=== PATIENT | male | born 1930 | race Caucasian/White ===

== ENCOUNTER 2018-05-15 01:53 | Inpatient (IN) | payer OTHER ==
[~2018-05-15] VITALS: Ht 167.6 cm; Wt 70.8 kg
[2018-05-15 01:54] VITALS: Ht 167.6 cm; Wt 70.8 kg
[2018-05-15 02:41] LABS: BASOPHIL % 0.5 % (0-2); PLATELET COUNT 253 x10^3mcL (130-400); RED CELL DISTRIBUTION WIDTH 13.6 % (11.5-14.5)
[2018-05-15 02:43] LABS: CALCIUM 8.5 mg/dL (8.5-10.1); CHLORIDE SERUM 106 mmol/L (98-107); GLUCOSE SERUM 180 mg/dL (74-106); POTASSIUM SERUM 3.6 mmol/L (3.5-5.1); SODIUM SERUM 141 mmol/L (136-145)
[2018-05-15 02:48] LABS: ALBUMIN 3.7 g/dL (3.4-5.0); ALKALINE PHOSPHATASE 69 U/L (46-116); ALT/SGPT 26 U/L (16-63); AST/SGOT 22 U/L (15-37); BILIRUBIN TOTAL 0.72 mg/dL (0.20-1.00); TOTAL PROTEIN, SERUM 7.4 g/dL (6.4-8.2)
[2018-05-15 02:49] LABS: CREATININE SERUM 1.1 mg/dL (0.7-1.3)
[2018-05-15 03:08] LABS: CK-MB 7.1 ng/mL (0-3.6)
[2018-05-15] MEDS ORDERED: LOVASTATIN40 MG PO (03:31)
[2018-05-15] MEDS ORDERED: NAPROSYN500 MG PO (03:32)
[2018-05-15] MEDS ORDERED: OMEPRAZOLE40 M1 PO (03:32)
[2018-05-15] MEDS ORDERED: AMOXICILLIN500 MG PO (03:33)
[2018-05-15 05:00] VITALS: BP 112/59
[2018-05-15 05:22] VITALS: BP 137/82
[2018-05-15 06:05] LABS: T3 TOTAL 1.04 ng/mL
[2018-05-15 06:08] LABS: MAGNESIUM 1.9 mg/dL (1.8-2.4); PHOSPHOROUS 2.4 mg/dL (2.5-4.9)
[2018-05-15 06:09] LABS: FREE T4 1.08 ng/dL (0.76-1.46); FREE THYROXINE INDEX 3.4 ug/dL (1.4-4.5); T4(THYROXINE) 8.9 ug/dL (4.7-13.3)
[2018-05-15 06:17] LABS: UA SPECIFIC GRAVITY >=1.030 (1.005-1.035); microscopic required? YES; urine erythrocyte NEGATIVE (NEGATIVE)
[2018-05-15 06:41] LABS: AMPHETAMINE QUAL UR NONE DETECTED (See below)
[2018-05-15 09:23] VITALS: BP 122/76
[2018-05-15 13:34] VITALS: BP 105/64
[2018-05-15 17:39] VITALS: BP 108/65
[2018-05-15 20:18] VITALS: BP 109/67
[2018-05-16 05:59] VITALS: BP 148/87
[2018-05-16 06:07] LABS: PLATELET COUNT 230 x10^3mcL (130-400)
[2018-05-16 06:23] LABS: CARBON DIOXIDE 23.4 mmol/L (21-32); CHLORIDE SERUM 106 mmol/L (98-107); CREATININE SERUM 1.2 mg/dL (0.7-1.3); GLUCOSE SERUM 147 mg/dL (74-106); PHOSPHOROUS 4.7 mg/dL (2.5-4.9); POTASSIUM SERUM 3.9 mmol/L (3.5-5.1); SODIUM SERUM 141 mmol/L (136-145)
[2018-05-16 06:30] LABS: BASOPHIL % 0 % (0-2); RED CELL DISTRIBUTION WIDTH 14.8 % (11.5-14.5)
[2018-05-16 09:40] VITALS: BP 115/64
[2018-05-16 12:33] VITALS: BP 116/75
[2018-05-16 21:01] VITALS: BP 113/68
[2018-05-17] VITALS (7 sets, daily range): BP systolic 103–155; BP diastolic 68–101
[2018-05-17 06:35] LABS: CALCIUM 8.3 mg/dL (8.5-10.1); CARBON DIOXIDE 25.9 mmol/L (21-32); CHLORIDE SERUM 107 mmol/L (98-107); CREATININE SERUM 1.1 mg/dL (0.7-1.3); GLUCOSE SERUM 138 mg/dL (74-106); MAGNESIUM 2.1 mg/dL (1.8-2.4); PHOSPHOROUS 4.4 mg/dL (2.5-4.9); POTASSIUM SERUM 3.7 mmol/L (3.5-5.1); SODIUM SERUM 143 mmol/L (136-145)
[2018-05-17 07:10] LABS: PLATELET COUNT 225 x10^3mcL (130-400); RED CELL DISTRIBUTION WIDTH 14.5 % (11.5-14.5)
[2018-05-17 07:11] LABS: BASOPHIL % 0 % (0-2)
[2018-05-18 05:59] VITALS: BP 115/72
[2018-05-18 07:27] LABS: PLATELET COUNT 221 x10^3mcL (130-400)
[2018-05-18 07:32] LABS: BASOPHIL % 0 % (0-2); RED CELL DISTRIBUTION WIDTH 14.6 % (11.5-14.5)
[2018-05-18 07:41] LABS: CALCIUM 7.8 mg/dL (8.5-10.1); CARBON DIOXIDE 30.9 mmol/L (21-32); CHLORIDE SERUM 105 mmol/L (98-107); GLUCOSE SERUM 129 mg/dL (74-106); MAGNESIUM 2.2 mg/dL (1.8-2.4); PHOSPHOROUS 4.3 mg/dL (2.5-4.9); POTASSIUM SERUM 4.1 mmol/L (3.5-5.1); SODIUM SERUM 139 mmol/L (136-145)
[2018-05-18 08:58] VITALS: BP 120/71
[2018-05-18] MEDS ORDERED: ZES5 PO (12:16)
[2018-05-18] MEDS ORDERED: ECO81 PO (12:16)
[2018-05-18] MEDS ORDERED: COR6 PO (12:16)
[2018-05-18] MEDS ORDERED: LAC PO (12:18)
[2018-05-18] MEDS ORDERED: LEVOFLOXACIN500 M1 PO (12:18)
[2018-05-18] MEDS ORDERED: LASIX20 MG PO (12:19)
[2018-05-18] MEDS ORDERED: CLEOCIN HCL300 MG PO (12:19)
[2018-05-18 12:34] VITALS: BP 120/71
== END 2018-05-18 14:07 | disposition home health service (06) | DRG 871 ==
LOC: ED 01:53 → DU 04:30
PROVIDERS: Emergency Medicine; Family Medicine
DX: A41.9 Sepsis, unspecified organism (principal); J69.0 Pneumonitis due to inhalation of food and vomit; I21.4 Non-ST elevation (NSTEMI) myocardial infarction; J96.01 Acute respiratory failure with hypoxia; N17.0 Acute kidney failure with tubular necrosis; G93.41 Metabolic encephalopathy; E87.2 Acidosis; E87.4 Mixed disorder of acid-base balance; R65.20 Severe sepsis without septic shock; E78.00 Pure hypercholesterolemia, unspecified; E78.5 Hyperlipidemia, unspecified; K21.9 Gastro-esophageal reflux disease without esophagitis; F43.0 Acute stress reaction; E83.39 Other disorders of phosphorus metabolism; I10 Essential (primary) hypertension; D72.829 Elevated white blood cell count, unspecified; I35.0 Nonrheumatic aortic (valve) stenosis; I34.0 Nonrheumatic mitral (valve) insufficiency; I25.10 Atherosclerotic heart disease of native coronary artery without angina pectoris; Z68.26 Body mass index [BMI] 26.0-26.9, adult
CPT/HCPCS: 83880; 84439; 97110-GP; 97116-GP; 97530-GP; J1200; J1630; J1940; J1956; J2060; J2920; J2930; J3486; J3490; J7620; Q0092

== ENCOUNTER 2018-06-11 23:55 | Inpatient (IN) | payer OTHER ==
[~2018-06-11] VITALS: Ht 167.6 cm; Wt 80.9 kg
[~2018-06-11 23:55] MED LIST: AMOXICILLIN500 MG PO; CLEOCIN HCL300 MG PO; COR6 PO; ECO81 PO; LAC PO; LASIX20 MG PO; LEVOFLOXACIN500 M1 PO; LOVASTATIN40 MG PO; NAPROSYN500 MG PO; OMEPRAZOLE40 M1 PO; ZES5 PO
[2018-06-12] VITALS (7 sets, daily range): BP systolic 92–115; BP diastolic 58–86
[2018-06-12 00:54] LABS: BASOPHIL % 0.3 % (0-2); PLATELET COUNT 250 x10^3mcL (130-400); RED CELL DISTRIBUTION WIDTH 14.1 % (11.5-14.5)
[2018-06-12 00:59] LABS: CALCIUM 7.9 mg/dL (8.5-10.1); CARBON DIOXIDE 21.5 mmol/L (21-32); CHLORIDE SERUM 102 mmol/L (98-107); CREATININE SERUM 1.3 mg/dL (0.7-1.3); GLUCOSE SERUM 161 mg/dL (74-106); SODIUM SERUM 135 mmol/L (136-145)
[2018-06-12 01:03] LABS: ALKALINE PHOSPHATASE 96 U/L (46-116); ALT/SGPT 41 U/L (16-63); AST/SGOT 29 U/L (15-37); BILIRUBIN TOTAL 0.5 mg/dL (0.20-1.00); MAGNESIUM 1.8 mg/dL (1.8-2.4); PHOSPHOROUS 4.2 mg/dL (2.5-4.9); TOTAL PROTEIN, SERUM 6.6 g/dL (6.4-8.2)
[2018-06-12 01:05] LABS: ALBUMIN 3.2 g/dL (3.4-5.0)
[2018-06-12] MEDS ORDERED: TERAZOSIN HCL2 MG PO (01:52)
[2018-06-12 04:05] LABS: CHOLESTEROL/HDL RATIO 3.1
[2018-06-12 04:40] LABS: microscopic required? NO
[2018-06-12 04:54] LABS: UA SPECIFIC GRAVITY 1.015 (1.005-1.035); urine erythrocyte NEGATIVE (NEGATIVE)
[2018-06-12 05:02] LABS: AMPHETAMINE QUAL UR NONE DETECTED (See below)
[2018-06-12 06:43] LABS: BASOPHIL % 0.4 % (0-2); PLATELET COUNT 234 x10^3mcL (130-400)
[2018-06-12 06:53] LABS: FREE T4 1.19 ng/dL (0.76-1.46); FREE THYROXINE INDEX 2.7 ug/dL (1.4-4.5)
[2018-06-12 06:56] LABS: CARBON DIOXIDE 25.6 mmol/L (21-32); CHLORIDE SERUM 101 mmol/L (98-107); CREATININE SERUM 1.4 mg/dL (0.7-1.3); GLUCOSE SERUM 131 mg/dL (74-106); POTASSIUM SERUM 4.3 mmol/L (3.5-5.1); SODIUM SERUM 137 mmol/L (136-145)
[2018-06-12 08:21] LABS: T3 TOTAL 1.04 ng/mL
[2018-06-13 08:40] VITALS: BP 87/61
[2018-06-13 08:45] VITALS: BP 95/65
[2018-06-13 10:24] LABS: BASOPHIL % 0.4 % (0-2); PLATELET COUNT 234 x10^3mcL (130-400); RED CELL DISTRIBUTION WIDTH 12.9 % (11.5-14.5)
[2018-06-13 10:51] LABS: ALKALINE PHOSPHATASE 76 U/L (46-116); ALT/SGPT 35 U/L (16-63); AST/SGOT 15 U/L (15-37); BILIRUBIN TOTAL 0.66 mg/dL (0.20-1.00); CALCIUM 8.4 mg/dL (8.5-10.1); CARBON DIOXIDE 24.4 mmol/L (21-32); CHLORIDE SERUM 102 mmol/L (98-107); CREATININE SERUM 1.4 mg/dL (0.7-1.3); GLUCOSE SERUM 174 mg/dL (74-106); MAGNESIUM 1.9 mg/dL (1.8-2.4); PHOSPHOROUS 3.8 mg/dL (2.5-4.9); SODIUM SERUM 133 mmol/L (136-145)
[2018-06-13 10:53] LABS: ALBUMIN 2.9 g/dL (3.4-5.0); TOTAL PROTEIN, SERUM 5.9 g/dL (6.4-8.2)
[2018-06-13 12:30] VITALS: BP 91/60
[2018-06-13 14:20] VITALS: BP 92/70
[2018-06-13 17:49] VITALS: BP 93/53
[2018-06-13 21:23] VITALS: BP 117/79
[2018-06-14 05:44] VITALS: BP 118/85
[2018-06-14 09:42] VITALS: BP 99/75
[2018-06-14 13:07] VITALS: BP 105/58
[2018-06-14 15:03] LABS: BASOPHIL % 0.2 % (0-2); PLATELET COUNT 251 x10^3mcL (130-400)
[2018-06-14 15:17] LABS: ALKALINE PHOSPHATASE 79 U/L (46-116); ALT/SGPT 32 U/L (16-63); AST/SGOT 15 U/L (15-37); BILIRUBIN TOTAL 0.68 mg/dL (0.20-1.00); CALCIUM 8.7 mg/dL (8.5-10.1); CARBON DIOXIDE 26.9 mmol/L (21-32); CHLORIDE SERUM 102 mmol/L (98-107); CREATININE SERUM 1.3 mg/dL (0.7-1.3); GLUCOSE SERUM 125 mg/dL (74-106); PHOSPHOROUS 3.9 mg/dL (2.5-4.9); POTASSIUM SERUM 4.2 mmol/L (3.5-5.1); SODIUM SERUM 136 mmol/L (136-145)
[2018-06-14 15:19] LABS: TOTAL PROTEIN, SERUM 6.1 g/dL (6.4-8.2)
[2018-06-14 17:56] VITALS: BP 90/66
[2018-06-14 20:53] VITALS: BP 97/62
[2018-06-15 05:21] VITALS: BP 103/72
[2018-06-15 07:22] LABS: BASOPHIL % 0.3 % (0-2); PLATELET COUNT 244 x10^3mcL (130-400); RED CELL DISTRIBUTION WIDTH 14.1 % (11.5-14.5)
[2018-06-15 08:20] LABS: CARBON DIOXIDE 26.7 mmol/L (21-32); CHLORIDE SERUM 102 mmol/L (98-107); CREATININE SERUM 1.4 mg/dL (0.7-1.3); GLUCOSE SERUM 73 mg/dL (74-106); SODIUM SERUM 137 mmol/L (136-145)
[2018-06-15 08:51] VITALS: BP 93/63
[2018-06-15 10:11] VITALS: BP 90/64
[2018-06-15] MEDS ORDERED: COR6 PO (11:00)
[2018-06-15] MEDS ORDERED: LASIX20 MG PO (11:00)
[2018-06-15 11:28] VITALS: BP 90/64
[2018-06-15 13:29] VITALS: BP 115/88
== END 2018-06-15 15:44 | disposition home or self-care (01) | DRG 291 ==
LOC: ED 23:55 → DU 06-12 01:59
PROVIDERS: Emergency Medicine Emergency Medical Services; Internal Medicine; Internal Medicine Pulmonary Disease
DX: I11.0 Hypertensive heart disease with heart failure (principal); N17.0 Acute kidney failure with tubular necrosis; J96.01 Acute respiratory failure with hypoxia; E44.0 Moderate protein-calorie malnutrition; I50.31 Acute diastolic (congestive) heart failure; I34.0 Nonrheumatic mitral (valve) insufficiency; I35.0 Nonrheumatic aortic (valve) stenosis; I42.0 Dilated cardiomyopathy; K21.9 Gastro-esophageal reflux disease without esophagitis; E11.65 Type 2 diabetes mellitus with hyperglycemia; E78.5 Hyperlipidemia, unspecified; Z85.828 Personal history of other malignant neoplasm of skin; Z85.030 Personal history of malignant carcinoid tumor of large intestine; Z85.46 Personal history of malignant neoplasm of prostate
CPT/HCPCS: 36600; 83880; 84439; 97110-GP; 97116-GP; 97530-GP; J0456; J1160; J1644; J1940; J2270; J3490; J7030; J7040; Q0092; Q9967